=== PATIENT | male | born 1965 | race Caucasian/White ===

== ENCOUNTER 2016-10-28 10:41 | Emergency (ER) | payer OTHER ==
[2016-10-28 10:44] VITALS: BMI 25.8
[2016-10-28] MEDS ORDERED: SODIUM CHLORIDE 1,000 ML IV STA ×2 (12:32→13:49)
--- NOTE | 2016-10-28 12:43 | PDOC ---
History of Present Illness - General Chief Complaint: Weakness Stated Complaint: FATIGUE, LOW BP/lab variance Time Seen by Provider: 10/28/16 10:48 History Source: Patient - History of Present Illness Timing/Duration: 1 week Associated Symptoms: reports: weakness. denies: cough, fever/chills, headaches , nausea/vomiting, shortness of breath Past History - Past Medical History Allergies/Adverse Reactions: Allergies Allergy/AdvReac Type Severity Reaction Status Date / Time No Known Allergies Allergy Verified 10/28/16 10:44 Home Medications: Ambulatory Orders Dapagliflozin Propanediol [Farxiga] 0 mg PO BID 10/28/16 Insulin Lispro [Humalog] 10 unit SQ DAILY 10/28/16 Lisinopril [Prinivil] 10 mg PO DAILY 10/28/16 Metformin HCl [Glucophage] 1,000 mg PO BID 10/28/16 Diabetes: Yes HTN: Yes Hypercholesterolemia: Yes - Surgical History Appendectomy: Yes - Psycho/Social/Smoking Cessation Hx Anxiety: No Suicidal Ideation: No Smoking History: Never smoked Have you smoked in the past 12 months: No Information on smoking cessation initiated: No Hx Alcohol Use: No Drug/Substance Use Hx: No Substance Use Type: None Hx Substance Use Treatment: No Review of Systems - Review of Systems Constitutional: Yes: Weakness. No: Chills, Fever HEENTM: No: Blurred Vision Respiratory: No: Cough, Shortness of Breath Cardiac (ROS): No: Chest Pain ABD/GI: No: Diarrhea, Nausea, Vomiting : Yes: Frequency. No: Burning, Dysuria, Flank Pain, Hematuria Neurological: No: Headache, Dizziness *Physical Exam - Vital Signs Last Vital Signs Temp Pulse Resp BP Pulse Ox 97.7 F 97 H 19 129/80 99 10/28/16 10:42 10/28/16 10:42 10/28/16 10:42 10/28/16 10:42 10/28/16 10:42 - Physical Exam General Appearance: Yes: Appropriately Dressed. No: Apparent Distress HEENT: positive: Normal Voice Neck: positive: Supple Respiratory/Chest: positive: Lungs Clear, Normal Breath Sounds. negative: Respiratory Distress Cardiovascular: positive: Regular Rate, S1, S2 Gastrointestinal/Abdominal: positive: Soft. negative: Tender Musculoskeletal: negative: CVA Tenderness Extremity: positive: Normal Inspection Integumentary: positive: Dry, Warm Neurologic: positive: Fully Oriented, Alert, Normal Mood/Affect ED Treatment Course - LABORATORY CBC & Chemistry Diagram: 10/28/16 12:55 10/28/16 12:55 Medical Decision Making - Medical Decision Making 10/28/16 12:37 51-year-old male, history of hypertriglyceridemia, hypertension, poorly controlled insulin-dependent diabetes, sent in by ED for hyperglycemia and low potassium on labs yesterday after patient presented to office with complaint of weakness and fatigue 1 week. Patient states despite multiple adjustment of medication fingerstick continues to be elevated at home. [facility] PMD started him on new oral hypoglycemic yesterday per patient but has yet to burr picker prescription. [facility] PMD contacted him this am to inform him that blood glucose was significantly elevated and his potassium was low. Pt denies any dizziness, CP, sob, muscle aches, sensory changes, n/v/f/c. See exam Hyperglycemia on labs yesterday +weakness and fatigue Stable and well debora in ED w/ unremarkable exam -labs -IVF -insulin -discuss dispo w/ referring MD Hypokalemia on labs yesterday -ekg -labs -replete as necessary The care 10/28/16 12:38 10/28/16 12:43 10/28/16 13:56 Case d/w Dr Soriano who states patient had hyponatremia, hypokalemia with sugar in the 600s on labs yesterday. Informed of results today. Agrees with IV fluid and repeat fingerstick. States patient to start taking new oral hypoglycemic sent to pharmacy and for patient to follow up with him in office on Tuesday. 10/28/16 14:59 FS. pt well debora and feels well going home. Will fill rx for new oral hypoglycemic as given by pmd and follow up 10/28/16 16:37 Told by ED nurse that fingerstick machine malfunctioning and currently under repair. In the meantime, patient offered for us to redraw blood to recheck BG on chem, but declines at this time. States he feels well and would prefer to go home and do fingerstick himself. States he will return if symptoms have worsened. Will burr picker new oral hypoglycemic at pharmacy and follow-up with PMD on Tuesday, . *DC/Admit/Observation/Transfer Diagnosis at time of Disposition: Hyperglycemia - Discharge Dispostion Disposition: HOME Condition at time of disposition: Improved - Referrals Referrals: Toni Soriano [Primary Care Provider] - - Patient Instructions Printed Discharge Instructions: DI for Hyperglycemia -- Adult Additional Instructions: Please start new meds and follow up with your PMD on Tuesday Return to ED for worsening of symptoms
[2016-10-28 13:02] LABS: EOSINOPHIL 1.1 % (0-4.5); MCH 28.1 pg (25.7-33.7); MCHC 34.4 g/dl (32.0-35.9); MEAN CELL VOLUME 81.7 fl (80-96); NEUTROPHILS 66.4 % (42.8-82.8); PLATELET COUNT 237 K/MM3 (134-434)
[2016-10-28 13:24] VITALS: TEMP 97.9
[2016-10-28 13:31] LABS: ANION GAP 12 (8-16); BILIRUBIN,TOTAL 0.8 mg/dL (0.2-1.0); CO2 28 mmol/L (21-32); COCKROFT - GAULT 110.24; CREATININE 0.9 mg/dL (0.7-1.3); SGOT/AST 19 U/L (15-37); SGPT/ALT 36 U/L (12-78); TOT PROT 8.1 g/dl (6.4-8.2)
[2016-10-28 13:33] LABS: ALK PHOS 115 U/L (45-117); TROPONIN I < 0.02 ng/ml (0.00-0.05)
[2016-10-28 13:39] LABS: GLUCOSE,RANDOM 383 mg/dL (74-106)
--- NOTE | 2016-10-28 13:47 | PDOC ---
*Physical Exam - Vital Signs Last Vital Signs Temp Pulse Resp BP Pulse Ox 97.9 F 75 16 175/75 98 10/28/16 13:00 10/28/16 13:00 10/28/16 13:00 10/28/16 13:00 10/28/16 13:00 Heart Score/ECG Review #1 ECG reviewed & interpreted by me at: 13:46 General ECG Interpretation: Sinus Rhythm, Normal Rate, Normal Intervals, No acute ischemic changes ED Treatment Course - LABORATORY CBC & Chemistry Diagram: 10/28/16 12:55 10/28/16 12:55 - ADDITIONAL ORDERS Additional order review: Laboratory Results 10/28/16 12:55 Sodium 133 L Potassium 3.9 Chloride 93 L Carbon Dioxide 28 Anion Gap 12 BUN 9 D Creatinine 0.9 Creat Clearance w eGFR > 60 Random Glucose 383 H* D Calcium 9.0 Total Bilirubin 0.8 AST 19 ALT 36 Alkaline Phosphatase 115 D Creatine Kinase 60 Troponin I < 0.02 Total Protein 8.1 Albumin 4.0 10/28/16 12:55 RBC 5.13 MCV 81.7 MCHC 34.4 RDW 13.0 MPV 9.0 Neutrophils % 66.4 Lymphocytes % 23.3 Monocytes % 8.2 Eosinophils % 1.1 Basophils % 1.0 - Medications Given in the ED: ED Medications Discontinued Medications Generic Name Dose Route Start Last Admin Trade Name Sonya PRN Reason Stop Dose Admin Sodium Chloride 1,000 mls @ 1,000 mls/hr 10/28/16 12:32 10/28/16 12:45 Normal Saline - IV 10/28/16 13:31 1,000 mls/hr ASDIR STA Administration Medical Decision Making - Medical Decision Making 10/28/16 13:46 Pt seen by Midlevel Provider under my direct supervision Ancillary studies reviewed I agree with plan as outlined by Midlevel Provider *DC/Admit/Observation/Transfer Diagnosis at time of Disposition: Hyperglycemia - Discharge Dispostion Disposition: HOME Condition at time of disposition: Improved - Referrals Referrals: Toni Soriano [Primary Care Provider] - - Patient Instructions Printed Discharge Instructions: DI for Hyperglycemia -- Adult Additional Instructions: Please start new meds and follow up with your PMD on Tuesday Return to ED for worsening of symptoms
--- NOTE | 2016-10-28 15:18 | EKG ---
Test Reason : Blood Pressure : / mmHG Vent. Rate : 098 BPM Atrial Rate : 098 BPM P-R Int : 146 ms QRS Dur : 104 ms QT Int : 368 ms P-R-T Axes : 049 041 012 degrees QTc Int : 469 ms NORMAL SINUS RHYTHM NORMAL ECG NO PREVIOUS ECGS AVAILABLE Confirmed by BETTY LEAVITT MD ([id number]) on 10/28/2016 3:17:50 PM Referred By: Confirmed By:BETTY LEAVITT MD
[2016-10-28 15:36] LABS: URINE APPEARANCE CLEAR; URINE BILIRUBIN NEGATIVE (NEGATIVE); URINE BLOOD NEGATIVE (NEGATIVE); URINE COLOR STRAW; URINE GLUCOSE (UA) 3+ (NEGATIVE); URINE KETONE NEGATIVE (NEGATIVE); URINE LEUK ESTERASE NEGATIVE (NEGATIVE); URINE NITRITE NEGATIVE (NEGATIVE); URINE PROTEIN NEGATIVE (NEGATIVE); URINE UROBILINOGEN NEGATIVE E.U./dl (0.2-1.0)
[2016-10-28 16:52] VITALS: BP 114/70; PULSE 80
== END 2016-10-28 16:50 | disposition home or self-care (01) ==
LOC: JER 10:41
PROC: 3E0337Z Introduction of Electrolytic and Water Balance Substance into Peripheral Vein, Percutaneous Approach (ICD-10-PCS; principal; 2016-10-28)
DX: E11.65 Type 2 diabetes mellitus with hyperglycemia (principal); I10 Essential (primary) hypertension; E78.00 Pure hypercholesterolemia, unspecified; Z79.4 Long term (current) use of insulin
CPT/HCPCS: 36415; 80053; 81003; 82550; 84484; 85025; 93005; 93010; 99283-25

== ENCOUNTER 2017-04-27 08:29 | Emergency (ER) | payer OTHER ==
[2017-04-27 08:38] VITALS: TEMP 97.5; BMI 27.3
--- NOTE | 2017-04-27 09:55 | PDOC ---
History of Present Illness <Kala Zapata - Last Filed: 04/27/17 12:44> - History of Present Illness Initial Comments: 04/27/17 10:01 "The patient is a 52 year old male, with a significant past medical history of IDDM (8-10 units of Novalog in the AM daily, and Metformin), HTN (reportedly taking lisinopril), who presents to the emergency department with persistent high blood glucose despite taking daily Novalog. The patient states his glucose is about 200 at baseline, however, for about a week has been unable to lower his glucose down from 400. He denies any dietary changes recently. Denies any recent changes in his medications. He reports 2 episodes of nonbilious/ nonbloody emesis yesterday night, but denies nausea or vomiting today. He reports increased thirst and increased urinary output. He denies chest pain, shortness of breath, headache and dizziness. He denies fever, chills, nausea, vomit, diarrhea and constipation. He denies dysuria, frequency, urgency and hematuria. Allergies: NKDA Past surgical history: none reported Social history: Denies toxic habits. 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 PCP: Dr. Fonseca (N/A - [phone])" <Abdi Stanford - Last Filed: 04/27/17 14:57> - General Chief Complaint: Blood Sugar Problem Stated Complaint: Sugar Problem Time Seen by Provider: 04/27/17 09:11 Past History <Kala Zapata - Last Filed: 04/27/17 12:44> - Past Medical History COPD: No Diabetes: Yes HTN: Yes Hypercholesterolemia: Yes - Surgical History Appendectomy: Yes - Suicide/Smoking/Psychosocial Hx Smoking History: Never smoked Have you smoked in the past 12 months: No Hx Alcohol Use: No Drug/Substance Use Hx: No Substance Use Type: None Hx Substance Use Treatment: No <Abdi Stanford - Last Filed: 04/27/17 14:57> - Past Medical History Allergies/Adverse Reactions: Allergies Allergy/AdvReac Type Severity Reaction Status Date / Time No Known Allergies Allergy Verified 04/27/17 08:38 Home Medications: Ambulatory Orders Dapagliflozin Propanediol [Farxiga] 0 mg PO BID 10/28/16 Insulin Lispro [Humalog] 10 unit SQ DAILY 10/28/16 Lisinopril [Prinivil] 10 mg PO DAILY 10/28/16 Metformin HCl [Glucophage] 1,000 mg PO BID 10/28/16 Review of Systems - Review of Systems Comments:: 04/27/17 10:02 """GENERAL/CONSTITUTIONAL: No fever or chills. No weakness. HEAD, EYES, EARS, NOSE AND THROAT: No change in vision. No ear pain or discharge. No sore throat. CARDIOVASCULAR: No chest pain or shortness of breath. RESPIRATORY: No cough, wheezing, or hemoptysis. GASTROINTESTINAL: No nausea, vomiting, diarrhea or constipation. GENITOURINARY: No dysuria, frequency, or change in urination. MUSCULOSKELETAL: No joint or muscle swelling or pain. No neck or back pain. SKIN: No rash NEUROLOGIC: No headache, vertigo, loss of consciousness, or change in strength/ sensation. ENDOCRINE: (+) high blood sugars. No increased thirst. No abnormal weight change. HEMATOLOGIC/LYMPHATIC: No anemia, easy bleeding, or history of blood clots. ALLERGIC/IMMUNOLOGIC: No hives or skin allergy. """ <Abdi Stanford - Last Filed: 04/27/17 14:57> *Physical Exam - Vital Signs Last Vital Signs Temp Pulse Resp BP Pulse Ox 97.5 F L 112 H 20 126/71 98 04/27/17 08:35 04/27/17 08:35 04/27/17 08:35 04/27/17 08:35 04/27/17 08:35 <Kala Zapata - Last Filed: 04/27/17 12:44> - Vital Signs Last Vital Signs Temp Pulse Resp BP Pulse Ox 97.5 F L 112 H 20 126/71 98 04/27/17 08:35 04/27/17 08:35 04/27/17 08:35 04/27/17 08:35 04/27/17 08:35 - Physical Exam Comments: 04/27/17 09:53 "GENERAL: Awake, alert, and fully oriented, in no acute distress HEAD: No signs of trauma EYES: PERRLA, EOMI, sclera anicteric, conjunctiva clear ENT: Auricles normal inspection, hearing grossly normal, nares patent, oropharynx clear without exudates. Moist mucosa NECK: Nontender, no stepoffs, Normal ROM, supple, no lymphadenopathy, JVD, or masses LUNGS: Breath sounds equal, clear to auscultation bilaterally. No wheezes, and no crackles HEART: Regular rate and rhythm, normal S1 and S2, no murmurs, rubs or gallops ABDOMEN: Soft, nontender, normoactive bowel sounds. No guarding, no rebound. No masses EXTREMITIES: Normal range of motion, no edema. No clubbing or cyanosis. No cords, erythema, or tenderness NEUROLOGICAL: Cranial nerves II through XII intact. 5/5 strength and sensation in all extremities, Normal speech, normal gait SKIN: Warm, Dry, normal turgor, no rashes or lesions noted. " <Abdi Stanford - Last Filed: 04/27/17 14:57> ED Treatment Course - LABORATORY CBC & Chemistry Diagram: 04/27/17 11:55 04/27/17 12:00 - ADDITIONAL ORDERS Additional order review: Laboratory Results 04/27/17 04/27/17 04/27/17 12:00 11:55 10:25 VBG pH QNS POC VBG pCO2 QNS POC VBG pO2 QNS Mixed VBG HCO3 QNS Sodium 132 L Potassium 4.1 Chloride 97 L Carbon Dioxide 26 Anion Gap 9 BUN 13 D Creatinine 0.8 Creat Clearance w eGFR > 60 Random Glucose 346 H* Calcium 8.2 L Phosphorus 3.4 Magnesium 1.7 L Total Bilirubin 1.1 H D AST 38 H D ALT 52 D Alkaline Phosphatase 71 D Total Protein 7.2 Albumin 3.7 Acetone, Qual Negative 04/27/17 04/27/17 11:55 10:25 RBC 5.02 Cancelled MCV 81.1 Cancelled MCHC 33.7 Cancelled RDW 13.2 Cancelled MPV 8.3 Cancelled Neutrophils % 82.0 D Cancelled Lymphocytes % 9.3 D Cancelled Monocytes % 8.2 Cancelled Eosinophils % 0.1 D Cancelled Basophils % 0.4 Cancelled <Kala Zapata - Last Filed: 04/27/17 12:44> - LABORATORY CBC & Chemistry Diagram: 04/27/17 11:55 04/27/17 12:00 - RADIOLOGY Radiology Studies Ordered: Category Date Time Status CHEST X-RAY PORTABLE* [RAD] Stat Radiology 04/27/17 09:28 Ordered <Abdi Stanford - Last Filed: 04/27/17 14:57> Medical Decision Making - Medical Decision Making 04/27/17 12:44 Dr. Kayleigh Soriano was called at his office and the patient's case was discussed. <Kala Zapata - Last Filed: 04/27/17 12:44> - Medical Decision Making 04/27/17 09:53 52 M with IDDM, HTN presenting to ER with poorly controlled sugars. Also complaining of nausea + vomiting x 1. Possible DKA. Pt with tachycardia in ER, likely 2/2 volume depletion. - Labs, VBG, serum ketones, UA - EKG - IVF - Mag, K, insulin PRN 04/27/17 14:42 CBC,CMP WBC 10.8 K/mm3 (4.0-10.0) H 04/27/17 11:55 Corrected WBC (auto) Cancelled 04/27/17 10:25 RBC 5.02 M/mm3 (4.00-5.60) 04/27/17 11:55 Hgb 13.7 GM/dL (11.7-16.9) 04/27/17 11:55 Hct 40.7 % (35.4-49) 04/27/17 11:55 MCV 81.1 fl (80-96) 04/27/17 11:55 MCH 27.3 pg (25.7-33.7) 04/27/17 11:55 MCHC 33.7 g/dl (32.0-35.9) 04/27/17 11:55 RDW 13.2 % (11.9-15.9) 04/27/17 11:55 Plt Count 212 K/MM3 (134-434) 04/27/17 11:55 MPV 8.3 fl (7.5-11.1) 04/27/17 11:55 Neutrophils % 82.0 % (42.8-82.8) D 04/27/17 11:55 Lymphocytes % 9.3 % (8-40) D 04/27/17 11:55 Monocytes % 8.2 % (3.8-10.2) 04/27/17 11:55 Eosinophils % 0.1 % (0-4.5) D 04/27/17 11:55 Basophils % 0.4 % (0-2.0) 04/27/17 11:55 Platelet Comment Cancelled 04/27/17 10:25 Sodium 132 mmol/L (136-145) L 04/27/17 12:00 Potassium 4.1 mmol/L (3.5-5.1) 04/27/17 12:00 Chloride 97 mmol/L (98-107) L 04/27/17 12:00 Carbon Dioxide 26 mmol/L (21-32) 04/27/17 12:00 Anion Gap 9 (8-16) 04/27/17 12:00 BUN 13 mg/dL (7-18) D 04/27/17 12:00 Creatinine 0.8 mg/dL (0.7-1.3) 04/27/17 12:00 Creat Clearance w eGFR > 60 (>60) 04/27/17 12:00 Random Glucose 346 mg/dL (74-106) H* 04/27/17 12:00 Calcium 8.2 mg/dL (8.5-10.1) L 04/27/17 12:00 Phosphorus 3.4 mg/dL (2.5-4.9) 04/27/17 12:00 Magnesium 1.7 mg/dL (1.8-2.4) L 04/27/17 10:25 Total Bilirubin 1.1 mg/dL (0.2-1.0) H D 04/27/17 12:00 AST 38 U/L (15-37) H D 04/27/17 12:00 ALT 52 U/L (12-78) D 04/27/17 12:00 Alkaline Phosphatase 71 U/L (45-117) D 04/27/17 12:00 Total Protein 7.2 g/dl (6.4-8.2) 04/27/17 12:00 Albumin 3.7 g/dl (3.4-5.0) 04/27/17 12:00 Ketones negative. AG 9. No evidence of DKA. Spoke with Dr. Soriano, pt's PMD, regarding his blood sugar control. He has agreed to see pt in clinic this week to adjust his insulin regimen. 04/27/17 14:57 Rpt fingerstick 150. Pt well appearing, vitals now normal. Clinically stable for DC. <Abdi Stanford - Last Filed: 04/27/17 14:57> *DC/Admit/Observation/Transfer - Attestations Scribe Attestion: 04/27/17 12:46 Documentation prepared by Kala Zapata, acting as medical coding auditor for Abdi Stanford MD <Kala Zapata - Last Filed: 04/27/17 12:44> - Attestations Physician Attestion: 04/27/17 14:47 I, Dr. Abdi Stanford MD, attest that this document has been prepared under my direction and personally reviewed by me in its entirety. I further attest, that it accurately reflects all work, treatment, procedures and medical decision -making performed by me. <Abdi Stanford - Last Filed: 04/27/17 14:57> Diagnosis at time of Disposition: Hyperglycemia - Discharge Dispostion Disposition: HOME - Patient Instructions Printed Discharge Instructions: DI for Hyperglycemia -- Adult Additional Instructions: Call your primary doctor today to make an appointment as soon as possible. You need to have your diabetes medications adjusted. Poorly controlled sugar can lead to severe complications, including heart and kidney disease, severe disability, or even . If you experience persistently elevated sugars, vomiting, weakness, or any other concerning symptoms, return to the ER immediately. Otherwise see your primary doctor within 48 hours. - Post Discharge Activity Forms/Work/School Notes: Back to Work
[2017-04-27] MEDS ORDERED: HEMOQUE TEST 1 EACH EACH ONE (11:24)
[2017-04-27 12:15] LABS: ACETONE SERUM NEGATIVE (NEGATIVE)
[2017-04-27] MEDS ORDERED: SODIUM CHLORIDE 1,000 ML IV STA ×2 (12:16→12:41)
[2017-04-27 12:19] LABS: ALBUMIN 3.7 g/dl (3.4-5.0); ANION GAP 9 (8-16); BILIRUBIN,TOTAL 1.1 mg/dL (0.2-1.0); CALCIUM 8.2 mg/dL (8.5-10.1); CO2 26 mmol/L (21-32); CREATININE 0.8 mg/dL (0.7-1.3); PHOSPHOROUS 3.4 mg/dL (2.5-4.9); SGOT/AST 38 U/L (15-37); SGPT/ALT 52 U/L (12-78); TOT PROT 7.2 g/dl (6.4-8.2)
[2017-04-27 12:19] LABS: BASOPHIL 0.4 % (0-2.0); EOSINOPHIL 0.1 % (0-4.5); MCH 27.3 pg (25.7-33.7); MCHC 33.7 g/dl (32.0-35.9); MEAN CELL VOLUME 81.1 fl (80-96); MEAN PLT VOLUME 8.3 fl (7.5-11.1); PLATELET COUNT 212 K/MM3 (134-434); RDW 13.2 % (11.9-15.9); WHITE BLOOD COUNT 10.8 K/mm3 (4.0-10.0)
[2017-04-27 12:20] LABS: ALK PHOS 71 U/L (45-117)
[2017-04-27 12:23] LABS: VENOUS BLOOD GAS HCO3 QNS meq/L (19-25); VENOUS PH QNS (7.32-7.42)
[2017-04-27 12:26] LABS: GLUCOSE,RANDOM 346 mg/dL (74-106)
[2017-04-27] MEDS ORDERED: INSULIN REGULAR HUMAN 100 UNITS/ML *VIAL IVPUSH ONE (12:39)
[2017-04-27] MEDS ORDERED: MAGNESIUM SULF 50% (8.12 MEQ/2 ML-1 GM VIAL) IVPB ONE (12:39)
[2017-04-27] MEDS ORDERED: MAGNESIUM SULF 50% (8.12 MEQ/2 ML-1 GM VIAL) ONE (12:59)
[2017-04-27] MEDS ORDERED: INSULIN REGULAR HUMAN 100 UNITS/ML *VIAL ONE (13:00)
[2017-04-27 13:18] VITALS: BP 100/59; PULSE 92
--- NOTE | 2017-04-28 11:38 | EKG ---
Test Reason : Blood Pressure : / mmHG Vent. Rate : 101 BPM Atrial Rate : 101 BPM P-R Int : 154 ms QRS Dur : 098 ms QT Int : 358 ms P-R-T Axes : 049 032 020 degrees QTc Int : 464 ms SINUS TACHYCARDIA OTHERWISE NORMAL ECG WHEN COMPARED WITH ECG OF 28-OCT-2016 13:35, NO SIGNIFICANT CHANGE WAS FOUND Confirmed by BETTY LEAVITT MD ([id number]) on 04/28/2017 11:38:09 AM Referred By: Confirmed By:BETTY LEAVITT MD
== END 2017-04-27 15:32 | disposition home or self-care (01) ==
LOC: JER 08:29
PROC: 3E033GC Introduction of Other Therapeutic Substance into Peripheral Vein, Percutaneous Approach (ICD-10-PCS; principal; 2017-04-27)
PROC: 3E0337Z Introduction of Electrolytic and Water Balance Substance into Peripheral Vein, Percutaneous Approach (ICD-10-PCS; 2017-04-27)
PROC: 3E033GC Introduction of Other Therapeutic Substance into Peripheral Vein, Percutaneous Approach (ICD-10-PCS; 2017-04-27)
PROC: 3E033VG Introduction of Insulin into Peripheral Vein, Percutaneous Approach (ICD-10-PCS; 2017-04-27)
DX: E10.65 Type 1 diabetes mellitus with hyperglycemia (principal); Z79.4 Long term (current) use of insulin; Z79.84 Long term (current) use of oral hypoglycemic drugs; I10 Essential (primary) hypertension; E78.00 Pure hypercholesterolemia, unspecified
CPT/HCPCS: 36415; 80053; 82009; 82803; 83735; 84100; 85025; 93005; 93010; 99283-25

== ENCOUNTER 2018-05-02 23:50 | Emergency (ER) | payer OTHER ==
[2018-05-03 00:01] VITALS: BMI 26.5
[2018-05-03] MEDS ORDERED: SODIUM CHLORIDE 1,000 ML IV STA ×2 (00:03→03:02)
--- NOTE | 2018-05-03 00:03 | PDOC ---
History of Present Illness - General Chief Complaint: Blood Sugar Problem Stated Complaint: BLOOD SUGAR HIGH Time Seen by Provider: 05/03/18 00:03 History Source: Patient - History of Present Illness Initial Comments: 05/03/18 04:21 53-year-old male history of type 1 diabetes reports feeling tired all day today blood sugar greater than 500 at home. Patient reports that he had his flu shot 3 days ago denies fevers/chills, urinary symptoms, chest pain dizziness.Denies nausea, vomiting, diarrhea, abdominal pain. Past History - Past Medical History Allergies/Adverse Reactions: Allergies Allergy/AdvReac Type Severity Reaction Status Date / Time No Known Allergies Allergy Verified 05/03/18 00:01 Home Medications: Ambulatory Orders Dapagliflozin Propanediol [Farxiga] 0 mg PO BID 10/28/16 Insulin Lispro [Humalog] 10 unit SQ DAILY 10/28/16 Lisinopril [Prinivil] 10 mg PO DAILY 10/28/16 Metformin HCl [Glucophage] 1,000 mg PO BID 10/28/16 COPD: No Diabetes: Yes HTN: Yes Hypercholesterolemia: Yes - Surgical History Appendectomy: Yes - Suicide/Smoking/Psychosocial Hx Smoking History: Never smoked Have you smoked in the past 12 months: No Information on smoking cessation initiated: No Hx Alcohol Use: No Drug/Substance Use Hx: No Substance Use Type: None Hx Substance Use Treatment: No *Physical Exam - Vital Signs Last Vital Signs Temp Pulse Resp BP Pulse Ox 97.5 F L 89 18 120/76 99 05/02/18 23:57 05/02/18 23:57 05/02/18 23:57 05/02/18 23:57 05/02/18 23:57 - Physical Exam General Appearance: Yes: Appropriately Dressed Respiratory/Chest: positive: Lungs Clear, Normal Breath Sounds Cardiovascular: positive: Regular Rhythm, Regular Rate Gastrointestinal/Abdominal: positive: Normal Bowel Sounds, Soft Extremity: positive: Normal Capillary Refill, Normal Inspection, Normal Range of Motion Integumentary: positive: Normal Color, Dry, Warm Neurologic: positive: Fully Oriented, Alert Moderate Sedation - Procedure Monitoring Vital Signs: Procedure Monitoring Vital Signs Temperature 97.5 F L 05/02/18 23:57 Pulse Rate 89 05/02/18 23:57 Respiratory Rate 18 05/02/18 23:57 Blood Pressure 120/76 05/02/18 23:57 O2 Sat by Pulse Oximetry (%) 99 05/02/18 23:57 Heart Score/ECG Review - History History: Slightly suspicious - Electrocardiogram EKG: Normal - Age Age: 45-65 - Risk Factors Risk Factors Heart Score: Yes Hx Diabetes Based on the list above the patient has:: 1-2 risk factors - Troponin Troponin: </= normal limit - Score Heart Score - Total: 2 - ECG Intrepretation Rhythm: Regular Rhythm Comment:: 05/03/18 05:49 NSR ED Treatment Course - LABORATORY CBC & Chemistry Diagram: 05/03/18 01:29 05/03/18 01:29 Medical Decision Making - Medical Decision Making 05/03/18 04:23 patient now status post IV fluids. pending fingerstick blood glucose level. Patient reports some slight chest discomfort. Will do an ekg Troponin negative 05/03/18 04:31 chest pain worse as per patient. breath sounds clear. EKG: NSR. will give aspirin. recheck troponin level. 05/03/18 05:25 Chest XR. No focal lung consolidation or pleural effusions. Hypoinflation lungs. Cardiomediastinal silhouette unremarkable. Bones unremarkable 05/03/18 05:48 patient is well appearing. no chest pain. repeat labs wnl . xray negtative ekg negative will d/c home *DC/Admit/Observation/Transfer Diagnosis at time of Disposition: Hyperglycemia Chest pain Qualifiers: Chest pain type: unspecified Qualified Code(s): R07.9 - Chest pain, unspecified - Referrals Referrals: Toni Soriano [Primary Care Provider] - 24 hours - Patient Instructions Printed Discharge Instructions: DI for Hyperglycemia -- Adult Additional Instructions: you may take your regular insulin at home , follow up with your doctor Additional Instructions: * Please call your personal physician to report your Emergency Department visit and to report your progress, if any. * If there is no improvement in symptoms in 2 days call your physician. * Return to the Emergency Department for any worsening symptoms. - Post Discharge Activity Forms/Work/School Notes: Back to Work
[2018-05-03 01:52] LABS: BASO % 0.9 % (0-2.0); EOS % 1.3 % (0-4.5); HEMOGLOBIN 12.9 GM/dL (11.7-16.9); LYMPH % 29.5 % (8-40); MCH 28.8 pg (25.7-33.7); MCHC 35.7 g/dl (32.0-35.9); MEAN CELL VOLUME 80.6 fl (80-96); MEAN PLT VOLUME 8.5 fl (7.5-11.1); MONO % 6.9 % (3.8-10.2); NEUT % 61.4 % (42.8-82.8); PLATELET COUNT 213 K/MM3 (134-434); RBC 4.47 M/mm3 (4.00-5.60); RDW 12.9 % (11.9-15.9); WHITE BLOOD COUNT 6.1 K/mm3 (4.0-10.0)
[2018-05-03 01:53] LABS: VENOUS PC02 39.1 mmHg (38-52); VENOUS PH 7.43 (7.32-7.42)
[2018-05-03 02:14] LABS: INR 0.96 (0.83-1.09); PROTHROMBIN TIME (PATIENT) 11.3 SEC (9.7-13.0)
[2018-05-03 02:17] LABS: ACTIVATED PTT 31.5 SECONDS (25.2-36.5)
[2018-05-03 02:18] LABS: ALBUMIN 3.4 g/dl (3.4-5.0); ALK PHOS 111 U/L (45-117); ANION GAP 10 MMOL/L (8-16); BILIRUBIN,TOTAL 0.6 mg/dL (0.2-1); BLOOD UREA NITROGEN 11 mg/dL (7-18); CALCIUM 9.1 mg/dL (8.5-10.1); CHLORIDE 97 mmol/L (98-107); CO2 27 mmol/L (21-32); CREATININE 0.8 mg/dL (0.55-1.3); POTASSIUM 4.1 mmol/L (3.5-5.1); SGOT/AST 30 U/L (15-37); SGPT/ALT 52 U/L (13-61); SODIUM 133 mmol/L (136-145)
[2018-05-03 02:22] LABS: GLUCOSE,RANDOM 359 mg/dL (74-106)
[2018-05-03] MEDS ORDERED: INSULIN REGULAR HUMAN 100 UNITS/ML *VIAL IVPUSH ONE (03:02)
[2018-05-03] MEDS ORDERED: INSULIN REGULAR HUMAN 100 UNITS/ML *VIAL ONE (03:28)
[2018-05-03 03:37] LABS: URINE APPEARANCE CLEAR; URINE BILIRUBIN NEGATIVE (<2.0 mg/dL); URINE COLOR STRAW; URINE GLUCOSE (UA) 3+ (NEGATIVE); URINE KETONE NEGATIVE (NEGATIVE); URINE LEUK ESTERASE NEGATIVE (NEGATIVE); URINE NITRITE NEGATIVE (NEGATIVE); URINE PROTEIN NEGATIVE (NEGATIVE); URINE UROBILINOGEN NEGATIVE mg/dL (0.2-1.0)
[2018-05-03] MEDS ORDERED: ASPIRIN 81 MG CHEWABLE TABLETS PO ONE (04:30)
[2018-05-03] MEDS ORDERED: ASPIRIN 81 MG CHEWABLE TABLETS ONE (04:35)
[2018-05-03 05:11] VITALS: BP 124/80; PULSE 77; TEMP 97.8
--- NOTE | 2018-05-03 09:45 | EKG ---
Test Reason : Blood Pressure : / mmHG Vent. Rate : 073 BPM Atrial Rate : 073 BPM P-R Int : 156 ms QRS Dur : 098 ms QT Int : 388 ms P-R-T Axes : 044 024 022 degrees QTc Int : 427 ms NORMAL SINUS RHYTHM NORMAL ECG WHEN COMPARED WITH ECG OF 27-APR-2017 09:57, NO SIGNIFICANT CHANGE WAS FOUND Confirmed by CATHLEEN GAY MD ([id number]) on 05/03/2018 9:45:30 AM Referred By: Confirmed By:CATHLEEN GAY MD
== END 2018-05-03 06:43 | disposition home or self-care (01) ==
LOC: JER 23:50
PROC: 3E013VG Introduction of Insulin into Subcutaneous Tissue, Percutaneous Approach (ICD-10-PCS; principal; 2018-05-02)
PROC: 3E0337Z Introduction of Electrolytic and Water Balance Substance into Peripheral Vein, Percutaneous Approach (ICD-10-PCS; 2018-05-02)
DX: R07.9 Chest pain, unspecified (principal); E10.65 Type 1 diabetes mellitus with hyperglycemia; Z79.4 Long term (current) use of insulin; I10 Essential (primary) hypertension; E78.00 Pure hypercholesterolemia, unspecified
CPT/HCPCS: 36415; 71045-TC-FY; 80053; 81003; 82009; 82550; 82803; 84484; 85025; 85610; 85730; 93005; 93010; 99282-25; J7030

== ENCOUNTER 2019-12-25 04:11 | Emergency (ER) | payer OTHER ==
--- NOTE | 2019-12-25 04:16 | PDOC ---
Attending Attestation - Resident Resident Name: Heriberto Rosenberg - ED Attending Attestation I have performed the following: I have examined & evaluated the patient, The case was reviewed & discussed with the resident, I agree w/resident's findings & plan - HPI HPI: 12/25/19 04:39 see resident hpi - Physicial Exam PE: 12/25/19 04:39 see resident exam - Medical Decision Making 12/25/19 04:39 54-year-old male type I diabetic with weakness Fingerstick blood sugar 369 Patient does have a history of chronic hyperglycemia, poorly controlled despite insulin manipulation Plan for labs, rule out DKA IV fluid LR administration and reevaluation If not improved will plan for observation Discharge - Discharge Information Problems reviewed: Yes Clinical Impression/Diagnosis: Near syncope Condition: Fair - Follow up/Referral - Patient Discharge Instructions - Post Discharge Activity
[2019-12-25 04:17] VITALS: TEMP 98.1; BMI 27.2
[2019-12-25] MEDS ORDERED: LACTATED RINGERS SOLUTION 1000 ML INFUS.BAG IV ONE ×2 (04:18→05:08)
--- NOTE | 2019-12-25 04:30 | PDOC ---
History of Present Illness - General Chief Complaint: Blood Sugar Problem Stated Complaint: BLOOD SUGAR PROBLEM Time Seen by Provider: 12/25/19 04:13 - History of Present Illness Initial Comments: Jose Ng is a 54 y/o male with PMH significant for T2DM presenting today for lightheadedness, weakness, and feeling faint. 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 No LOC. No fall/head trauma. He normally takes 120 units of insulin every day divided over three doses. Does not report change in appetite or PO intake. States that at baseline his blood sugar is in the 300s. Drank a few sips of soda prior to presentation. Pt denies chest pain/shortness of breath/abdominal pain. Denies headache/back pain/leg swelling. Denies dysuria/frequency. Past History - Medical History Allergies/Adverse Reactions: Allergies Allergy/AdvReac Type Severity Reaction Status Date / Time No Known Allergies Allergy Verified 12/25/19 04:17 Home Medications: Ambulatory Orders Dapagliflozin Propanediol [Farxiga] 0 mg PO BID 10/28/16 Insulin Lispro [Humalog] 10 unit SQ DAILY 10/28/16 Lisinopril [Prinivil] 10 mg PO DAILY 10/28/16 Metformin HCl [Glucophage] 1,000 mg PO BID 10/28/16 COPD: No Diabetes: Yes HTN: Yes Hypercholesterolemia: Yes - Surgical History Appendectomy: Yes - Immunization History Immunization Up to Date: No - Psycho-Social/Smoking History Smoking History: Never smoked Have you smoked in the past 12 months: No Information on smoking cessation initiated: No - Substance Abuse Hx (Audit-C & DAST Scrn) How often the patient has a drink containing alcohol: Never Score: In Men: 4 or > Positive; In Women: 3 or > Positive: 0 Screen Result (Pos requires Nsg. Audit-10AR): Negative In the last yr the pt used illegal drug/Rx for NonMed reason: No Score: Yes response is considered Positive: 0 Screen Result (Positive result requires Nsg. DAST-10): Negative Review of Systems - Review of Systems Comments:: GENERAL/CONSTITUTIONAL: No fever or chills. No weakness._ HEAD, EYES, EARS, NOSE AND THROAT: No change in vision. No change in hearing. No sore throat._ CARDIOVASCULAR: No chest pain or shortness of breath_ RESPIRATORY: Denies cough, hemoptysis_ GASTROINTESTINAL: No nausea, vomiting, diarrhea or constipation._ GENITOURINARY: No dysuria, frequency, or change in urination._ MUSCULOSKELETAL: No joint or muscle swelling or pain. No neck or back pain._ SKIN: No rash_ NEUROLOGIC: Reports feeling lightheaded and faint. No headache, vertigo, loss of consciousness, or change in strength/sensation._ ENDOCRINE: No increased thirst. No abnormal weight change_ HEMATOLOGIC/LYMPHATIC: No anemia, easy bleeding, or history of blood clots._ ALLERGIC/IMMUNOLOGIC: No hives or skin allergy._ *Physical Exam - Vital Signs Last Vital Signs Temp Pulse Resp BP Pulse Ox 98.1 F 102 H 17 133/82 96 12/25/19 04:14 12/25/19 04:14 12/25/19 04:14 12/25/19 04:14 12/25/19 04:14 - Physical Exam GENERAL: Awake, arousable to verbal stimuli, and oriented to person/place/time, in no acute distress_ HEAD: No signs of trauma, normocephalic, atraumatic _ EYES: PERRLA, EOMI, sclera anicteric, conjunctiva clear_ ENT: Hearing grossly normal, nares patent, oropharynx clear without exudates. No uvular deviation. Moist mucosa_ NECK: Normal ROM, supple, no lymphadenopathy, JVD, or masses_ LUNGS: No distress, speaks in full sentences, clear to auscultation bilaterally _ HEART: Regular rate and rhythm, normal S1 and S2, no murmurs appreciated, peripheral pulses normal and equal bilaterally._ ABDOMEN: Soft, nontender, normoactive bowel sounds. No guarding, no rebound. No masses_ EXTREMITIES: Normal inspection, Normal range of motion, no edema. No clubbing or cyanosis_ NEUROLOGICAL: Cranial nerves II through XII grossly intact. Normal speech, normal gait, no focal sensorimotor deficits _ SKIN: Warm, Dry, normal turgor, no rashes or lesions noted_ ED Treatment Course - LABORATORY CBC & Chemistry Diagram: 12/25/19 04:30 12/25/19 04:30 - ADDITIONAL ORDERS Additional order review: Laboratory Results 12/25/19 04:19 POC Glucometer 369 12/25/19 04:19 POC Glucometer 369 Medical Decision Making - Medical Decision Making 12/25/19 04:27 54M hx of T2DM presenting today with feeling lightheaded and faint. Blood sugar after a few sips of soda was 292 and 369. Took his insulin as prescribed today (120 units divided into three doses). No change in appetite. DDx includes hyper/hypoglycemia vs r/o DKA vs near syncope vs dehydration. -cbc, cmp -ekg, trop, cxr -beta hydroxybutyrate -lactic -ua/ucx -mag -lipase -vbg 12/25/19 04:43 EKG shows 99 bpm, NSR, no axis deivation, PA 158, QTc 459, no ST elevation/depression. No significant interval change compared to EKG from 2017. 12/25/19 05:41 Labs reviewed. Laboratory Last Values WBC 12.1 K/mm3 (4.0-10.0) H 12/25/19 04:30 RBC 4.60 M/mm3 (4.00-5.60) 12/25/19 04:30 Hgb 12.9 GM/dL (11.7-16.9) 12/25/19 04:30 Hct 37.7 % (35.4-49) 12/25/19 04:30 MCV 82.0 fl (80-96) 12/25/19 04:30 MCH 28.0 pg (25.7-33.7) 12/25/19 04:30 MCHC 34.1 g/dl (32.0-35.9) 12/25/19 04:30 RDW 13.1 % (11.9-15.9) 12/25/19 04:30 Plt Count 197 K/MM3 (134-434) 12/25/19 04:30 MPV 8.8 fl (7.5-11.1) 12/25/19 04:30 Absolute Neuts (auto) 9.4 K/mm3 (1.5-8.0) H 12/25/19 04:30 Neutrophils % 77.1 % (42.8-82.8) D 12/25/19 04:30 Lymphocytes % 14.1 % (8-40) D 12/25/19 04:30 Monocytes % 7.5 % (3.8-10.2) 12/25/19 04:30 Eosinophils % 0.8 % (0-4.5) 12/25/19 04:30 Basophils % 0.5 % (0-2.0) 12/25/19 04:30 Nucleated RBC % 0 % (0-0) 12/25/19 04:30 VBG pH 7.395 (7.310-7.410) 12/25/19 04:35 POC VBG pCO2 40.5 mmHg (38-52) 12/25/19 04:35 POC VBG pO2 82.5 mmHg (28-48) H 12/25/19 04:35 VBG HCO3 24.2 mmol/L (23-29) 12/25/19 04:35 VBG O2 Sat (Richard) 96.1 % (70-80) H 12/25/19 04:35 VBG Base Excess -0.6 mmol/L (-2-2) 12/25/19 04:35 Sodium 134 mmol/L (136-145) L 12/25/19 04:30 Potassium 4.1 mmol/L (3.5-5.1) 12/25/19 04:30 Chloride 101 mmol/L (98-107) 12/25/19 04:30 Carbon Dioxide 24 mmol/L (21-32) 12/25/19 04:30 Anion Gap 9 MMOL/L (8-16) 12/25/19 04:30 BUN 14.9 mg/dL (7-18) 12/25/19 04:30 Creatinine 1.0 mg/dL (0.55-1.3) 12/25/19 04:30 Est GFR (CKD-EPI)AfAm 99.15 12/25/19 04:30 Est GFR (CKD-EPI)NonAf 85.55 12/25/19 04:30 POC Glucometer 369 UNITS (80-120) 12/25/19 04:19 Random Glucose 385 mg/dL (74-106) H 12/25/19 04:30 Lactic Acid 2.4 mmol/L (0.4-2.0) H* 12/25/19 04:30 Calcium 8.6 mg/dL (8.5-10.1) 12/25/19 04:30 Phosphorus 3.4 mg/dL (2.5-4.9) 12/25/19 04:30 Magnesium 1.9 mg/dL (1.8-2.4) 12/25/19 04:30 Total Bilirubin 0.7 mg/dL (0.2-1) 12/25/19 04:30 AST 33 U/L (15-37) 12/25/19 04:30 ALT 54 U/L (13-61) 12/25/19 04:30 Alkaline Phosphatase 90 U/L (45-117) 12/25/19 04:30 Creatine Kinase 94 U/L (26-308) 12/25/19 04:30 Creatine Kinase Cancelled 12/25/19 04:30 Troponin I < 0.02 ng/ml (0.00-0.05) 12/25/19 04:30 Troponin I Cancelled 12/25/19 04:30 Total Protein 7.4 g/dl (6.4-8.2) 12/25/19 04:30 Albumin 3.7 g/dl (3.4-5.0) 12/25/19 04:30 Lipase 106 U/L (73-393) 12/25/19 04:30 Beta-Hydroxybutyrate 1.5 mg/dL (0.2-2.8) 12/25/19 04:30 12/25/19 06:38 Pt reassessed. No signs or symptoms of DKA/HHS. Pt reports significant improvement. Plan to d/c home with PCP f/u. All questions answered. Return precautions given. Pt verbalized understanding and agreement with plan. Discharge - Discharge Information Problems reviewed: Yes Clinical Impression/Diagnosis: Near syncope Condition: Stable Disposition: HOME - Admission No - Follow up/Referral Referrals: [facility] [place] [facility] [place] [Provider Group] - Patient Discharge Instructions Patient Printed Discharge Instructions: DI for Hyperglycemia -- Adult Additional Instructions: Please continue taking your medications as prescribed. Please make a follow up appointment with your primary care doctor (referral provided here) to discuss diabetes management. If you experience any new, worsening, or concerning symptoms, including nausea, vomiting, lethargy, change in mental status, change in vision, loss of consciousness, or any other concerns, please return to the emergency department. - Post Discharge Activity Work/Back to School Note: Back to Work
[2019-12-25 04:48] LABS: BASO % 0.5 % (0-2.0); EOS % 0.8 % (0-4.5); HEMATOCRIT 37.7 % (35.4-49); HEMOGLOBIN 12.9 GM/dL (11.7-16.9); LYMPH % 14.1 % (8-40); MCHC 34.1 g/dl (32.0-35.9); MEAN PLT VOLUME 8.8 fl (7.5-11.1); MONO % 7.5 % (3.8-10.2); NEUT % 77.1 % (42.8-82.8); PLATELET COUNT 197 K/MM3 (134-434); RDW 13.1 % (11.9-15.9); WHITE BLOOD COUNT 12.1 K/mm3 (4.0-10.0)
[2019-12-25 04:58] LABS: VENOUS BASE EXCESS -0.6 mmol/L (-2-2); VENOUS O2 SATURATION 96.1 % (70-80); VENOUS PCO2 40.5 mmHg (38-52); VENOUS PH 7.395 (7.310-7.410)
[2019-12-25 05:13] LABS: ALBUMIN 3.7 g/dl (3.4-5.0); ALK PHOS 90 U/L (45-117); ANION GAP 9 MMOL/L (8-16); BILIRUBIN,TOTAL 0.7 mg/dL (0.2-1); BLOOD UREA NITROGEN 14.9 mg/dL (7-18); CALCIUM 8.6 mg/dL (8.5-10.1); CHLORIDE 101 mmol/L (98-107); CO2 24 mmol/L (21-32); GLUCOSE,RANDOM 385 mg/dL (74-106); LIPASE 106 U/L (73-393); MAGNESIUM 1.9 mg/dL (1.8-2.4); PHOSPHOROUS 3.4 mg/dL (2.5-4.9); POTASSIUM 4.1 mmol/L (3.5-5.1); SGOT/AST 33 U/L (15-37); SGPT/ALT 54 U/L (13-61); SODIUM 134 mmol/L (136-145); TOT PROT 7.4 g/dl (6.4-8.2)
[2019-12-25 06:12] VITALS: BP 123/77; PULSE 67
[2019-12-25 06:33] LABS: URINE APPEARANCE CLEAR; URINE BILIRUBIN NEGATIVE (NEGATIVE); URINE COLOR YELLOW; URINE GLUCOSE (UA) 3+ (NEGATIVE); URINE KETONE NEGATIVE (NEGATIVE); URINE LEUK ESTERASE NEGATIVE (NEGATIVE); URINE NITRITE NEGATIVE (NEGATIVE); URINE PROTEIN NEGATIVE (NEGATIVE)
--- NOTE | 2019-12-25 10:43 | EKG ---
Test Reason : Blood Pressure : / mmHG Vent. Rate : 099 BPM Atrial Rate : 099 BPM P-R Int : 158 ms QRS Dur : 104 ms QT Int : 358 ms P-R-T Axes : 040 032 019 degrees QTc Int : 459 ms NORMAL SINUS RHYTHM NORMAL ECG WHEN COMPARED WITH ECG OF 03-MAY-2018 04:29, NON-SPECIFIC CHANGE IN ST SEGMENT IN INFERIOR LEADS Confirmed by Edmundo Velazquez ([id number]) on 12/25/2019 10:43:13 AM Referred By: Confirmed By:Edmundo Velazquez
== END 2019-12-25 06:49 | disposition home or self-care (01) ==
LOC: JER 04:11
DX: R55 Syncope and collapse (principal)
CPT/HCPCS: 36415; 80053; 81003; 82010; 82550; 82803; 82962; 83605; 83690; 83735; 84100; 84484; 85025; 87086; 93005; 93010; 99285-25

== ENCOUNTER 2021-01-28 02:36 | Emergency (ER) | payer OTHER ==
[2021-01-28 02:45] VITALS: BP 145/77; PULSE 87; TEMP 97.8; BMI 29.4
[2021-01-28] MEDS ORDERED: ONDANSETRON *ODT* 4 MG TABLET ONE (02:45)
[2021-01-28] MEDS ORDERED: ONDANSETRON *ODT* 4 MG TABLET SL ONE (02:45)
[2021-01-28 03:16] LABS: BASO % 0.8 % (0-2.0); EOS % 1.8 % (0-4.5); HEMATOCRIT 34.2 % (35.4-49); HEMOGLOBIN 12.1 GM/dL (11.7-16.9); LYMPH % 29.3 % (8-40); MCH 29.1 pg (25.7-33.7); MCHC 35.5 g/dl (32.0-35.9); MEAN CELL VOLUME 81.9 fl (80-96); MEAN PLT VOLUME 7.8 fl (7.5-11.1); MONO % 7.9 % (3.8-10.2); NEUT % 60.2 % (42.8-82.8); PLATELET COUNT 205 10^3/uL (134-434); RBC 4.18 M/mm3 (4.00-5.60); RDW 13.7 % (11.9-15.9); WHITE BLOOD COUNT 8.7 K/mm3 (4.0-10.0)
[2021-01-28 03:26] LABS: INR 1.01 (0.83-1.09); PROTHROMBIN TIME (PATIENT) 12.2 SEC (9.7-13.0)
[2021-01-28 03:28] LABS: ACTIVATED PTT 34.6 SECONDS (25.2-36.5)
[2021-01-28] MEDS ORDERED: ACETAMINOPHEN 1000 MG/100 ML VIAL (NON FORMULARY) IVPB ONE (03:28)
[2021-01-28] MEDS ORDERED: LACTATED RINGERS SOLUTION 1000 ML INFUS.BAG IV ONE ×2 (03:28→05:13)
[2021-01-28 03:30] LABS: CHLORIDE 102 mmol/L (98-107); SODIUM 138 mmol/L (136-145)
[2021-01-28 03:32] LABS: CALCIUM 9.2 mg/dL (8.5-10.1)
[2021-01-28 03:33] LABS: ALBUMIN 3.7 g/dl (3.4-5.0); ANION GAP 7 MMOL/L (8-16); BLOOD UREA NITROGEN 11.5 mg/dL (7-18); CO2 29 mmol/L (21-32); GLUCOSE,RANDOM 144 mg/dL (74-106)
[2021-01-28 03:36] LABS: CREATININE 0.9 mg/dL (0.55-1.3); SGOT/AST 40 U/L (15-37); SGPT/ALT 59 U/L (13-61)
[2021-01-28 03:37] LABS: BILIRUBIN,TOTAL 0.6 mg/dL (0.2-1)
[2021-01-28 03:38] LABS: TOT PROT 7.5 g/dl (6.4-8.2)
[2021-01-28 03:39] LABS: ALK PHOS 74 U/L (45-117)
[2021-01-28] MEDS ORDERED: ACETAMINOPHEN INJECTION 100 ML IVPB ONE (03:39)
[2021-01-28] MEDS ORDERED: SODIUM CHLORIDE 0.9% 500 ML INFUS.BAG IV ONE (04:01)
[2021-01-28 04:19] LABS: VENOUS BASE EXCESS -0.7 mmol/L (-2-2); VENOUS O2 SATURATION 90.8 % (70-80); VENOUS PCO2 42.2 mmHg (38-52); VENOUS PH 7.38 (7.310-7.410)
== END 2021-01-28 06:36 | disposition home or self-care (01) ==
LOC: JER 02:36
PROC: 3E0333Z Introduction of Anti-inflammatory into Peripheral Vein, Percutaneous Approach (ICD-10-PCS; principal; 2021-01-28)
DX: R53.81 Other malaise (principal); R51.9 Headache, unspecified
CPT/HCPCS: 36415; 70450-TC; 72125-TC; 80053; 82010; 82550; 82803; 82962; 84484; 85025; 85610; 85730; 93005; 93010; 99285-25; C9803; J0131; Q0162; U0003; U0005

== ENCOUNTER 2021-05-21 13:50 | Inpatient (IN) | payer OTHER ==
[2021-05-21] MEDS ORDERED: ACETAMINOPHEN 1000 MG/100 ML BAG IVPB ONE (14:38)
[2021-05-21] MEDS ORDERED: ONDANSETRON 4 MG/2 ML VIAL IVPUSH ONE (14:38)
[2021-05-21] MEDS ORDERED: LACTATED RINGERS SOLUTION 1000 ML INFUS.BAG IV ONE ×2 (14:38→17:28)
[2021-05-21] MEDS ORDERED: ACETAMINOPHEN INJECTION 100 ML IVPB ONE (14:41)
[2021-05-21] MEDS ORDERED: ONDANSETRON 4 MG/2 ML VIAL ONE (14:42)
[2021-05-21 16:16] LABS: BASO % 0.4 % (0-2.0); EOS % 0.1 % (0-4.5); LYMPH % 21.7 % (8-40); MCH 28.1 pg (25.7-33.7); MCHC 34.2 g/dl (32.0-35.9); MEAN CELL VOLUME 82.1 fl (80-96); MEAN PLT VOLUME 8.4 fl (7.5-11.1); MONO % 16.2 % (3.8-10.2); NEUT % 61.6 % (42.8-82.8); PLATELET COUNT 189 10^3/uL (134-434); RBC 4.26 M/mm3 (4.00-5.60); RDW 13.3 % (11.9-15.9); WHITE BLOOD COUNT 6.6 K/mm3 (4.0-10.0)
[2021-05-21 16:28] LABS: CHLORIDE 100 mmol/L (98-107); SODIUM 135 mmol/L (136-145)
[2021-05-21 16:30] LABS: ANION GAP 4 MMOL/L (8-16); BLOOD UREA NITROGEN 12.8 mg/dL (7-18); CALCIUM 8.9 mg/dL (8.5-10.1); CO2 31 mmol/L (21-32); GLUCOSE,RANDOM 196 mg/dL (74-106)
[2021-05-21 16:33] LABS: SGOT/AST 145 U/L (15-37); SGPT/ALT 138 U/L (13-61)
[2021-05-21 16:35] LABS: TOT PROT 7.7 g/dl (6.4-8.2)
[2021-05-21 16:36] LABS: ALK PHOS 60 U/L (45-117)
[2021-05-21] MEDS ORDERED: DEXAMETHASONE SOD PHOSPHATE 4 MG/1 ML VIAL IVPUSH ONE (18:04)
[2021-05-21] MEDS ORDERED: DEXAMETHASONE SOD PHOSPHATE 10 MG/1 ML VIAL ONE (18:14)
[2021-05-21] MEDS ORDERED: ACETAMINOPHEN 325 MG TABLET (FP) PO PRN (21:15)
[2021-05-21] MEDS ORDERED: ONDANSETRON 4 MG/2 ML VIAL IVPUSH PRN (21:23)
[2021-05-21] MEDS: FAMOTIDINE 20 MG/50 ML IVPB 20 MG/50 ML MG IVPB SCH (21:59)
[2021-05-21] MEDS ORDERED: INSULIN REGULAR HUMAN 100 UNITS/ML *VIAL IVPUSH ONE (23:04)
[2021-05-22 00:13] VITALS: BMI 29.5
[2021-05-22 01:45] LABS: PH,URINE 6.5 (5.0-8.0); URINE APPEARANCE CLEAR; URINE BILIRUBIN NEGATIVE (NEGATIVE); URINE COLOR YELLOW; URINE GLUCOSE (UA) 3+ (NEGATIVE); URINE KETONE NEGATIVE (NEGATIVE); URINE LEUK ESTERASE NEGATIVE (NEGATIVE); URINE NITRITE NEGATIVE (NEGATIVE); URINE PROTEIN NEGATIVE (NEGATIVE)
[2021-05-22] MEDS ORDERED: INSULIN (LEVEMIR) 100 UNITS/ML UNITS SQ ONE (01:48)
[2021-05-22] MEDS: INSULIN SLIDING SCALE (NOVOLOG) 1 VIAL SQ SCH ×3 (06:01→17:13)
[2021-05-22] MEDS ORDERED: CLOPIDOGREL BISULFATE 75 MG TABLET (FP) PO SCH (10:00)
[2021-05-22] MEDS ORDERED: DEXAMETHASONE SOD PHOSPHATE 10 MG/1 ML VIAL IVPUSH SCH (10:00)
[2021-05-22] MEDS ORDERED: ASPIRIN COATED 81 MG TABLET.EC PO SCH (10:00)
[2021-05-22] MEDS ORDERED: ENOXAPARIN NA (PORCINE) 40 MG/0.4 ML DISP.SYRIN SQ SCH (10:00)
[2021-05-22 10:11] LABS: BASO % 0.4 % (0-2.0); HEMATOCRIT 34.8 % (35.4-49); HEMOGLOBIN 11.6 GM/dL (11.7-16.9); LYMPH % 30.3 % (8-40); MCH 27.5 pg (25.7-33.7); MCHC 33.5 g/dl (32.0-35.9); MEAN PLT VOLUME 8.6 fl (7.5-11.1); MONO % 11.7 % (3.8-10.2); NEUT % 57.6 % (42.8-82.8); PLATELET COUNT 201 10^3/uL (134-434); RBC 4.24 M/mm3 (4.00-5.60); RDW 12.9 % (11.9-15.9); WHITE BLOOD COUNT 4.8 K/mm3 (4.0-10.0)
[2021-05-22 10:12] LABS: INR 1.18 (0.83-1.09); PROTHROMBIN TIME (PATIENT) 13.2 SEC (9.7-13.0)
[2021-05-22 10:14] LABS: ACTIVATED PTT 31.9 SECONDS (25.2-36.5)
[2021-05-22 10:21] LABS: CALCIUM 8.7 mg/dL (8.5-10.1)
[2021-05-22 10:23] LABS: ALBUMIN 3.8 g/dl (3.4-5.0); BLOOD UREA NITROGEN 13.2 mg/dL (7-18); MAGNESIUM 2.3 mg/dL (1.8-2.4)
[2021-05-22 10:25] LABS: BILIRUBIN,DIRECT 0.2 mg/dL (0.0-0.2)
[2021-05-22 10:26] LABS: BILIRUBIN,TOTAL 0.8 mg/dL (0.2-1); BILIRUBIN,TOTAL 1.4 mg/dL (0.2-1); CREATININE 0.9 mg/dL (0.55-1.3); PHOSPHOROUS 3.6 mg/dL (2.5-4.9); TOT PROT 7.5 g/dl (6.4-8.2)
[2021-05-22 10:32] LABS: ALBUMIN 3.8 g/dl (3.4-5.0)
[2021-05-22] MEDS: FAMOTIDINE 20 MG/50 ML IVPB 20 MG/50 ML MG IVPB SCH (10:34)
[2021-05-22] MEDS ORDERED: INSULIN (NOVOLOG) ASPART 100 UNITS/ML 10ML VIAL ONE (10:41)
[2021-05-22 13:17] VITALS: BP 112/56; PULSE 106; TEMP 98.8
== END 2021-05-22 18:42 | disposition home or self-care (01) | DRG 177 ==
LOC: JER 13:50 → JERBED 17:52 → J8W 20:35
PROVIDERS: ADMIT Internal Medicine; ATTEND Internal Medicine
PROC: 3E0333Z Introduction of Anti-inflammatory into Peripheral Vein, Percutaneous Approach (ICD-10-PCS; principal; 2021-05-21)
DX: U07.1 COVID-19 (principal); J96.01 Acute respiratory failure with hypoxia; E11.9 Type 2 diabetes mellitus without complications; R50.9 Fever, unspecified; E78.5 Hyperlipidemia, unspecified; D35.2 Benign neoplasm of pituitary gland; I10 Essential (primary) hypertension; R68.89 Other general symptoms and signs
CPT/HCPCS: 36415; 71045-TC-FY; 71275-TC; 80053; 80076; 81003; 82550; 82553; 82728; 82962; 83036; 83615; 83735; 84100; 84484; 85025; 85610; 85730; 86140; 87040; 87804; 93005; 93010; 99285-25; C9803; J0131; J1100; U0003; U0005

== ENCOUNTER 2022-01-26 11:35 | Emergency (ER) | payer OTHER ==
[2022-01-26 11:50] VITALS: RESP 18; TEMP 97.9; BMI 29.5
[2022-01-26] MEDS ORDERED: SODIUM CHLORIDE 0.9% 500 ML INFUS.BAG IV ONE (12:06)
[2022-01-26 12:17] LABS: BASO % 0.7 % (0-2.0); EOS % 1.2 % (0-4.5); HEMATOCRIT 39.8 % (35.4-49); HEMOGLOBIN 13.6 GM/dL (11.7-16.9); LYMPH % 20.2 % (8-40); MCH 27.9 pg (25.7-33.7); MCHC 34.2 g/dl (32.0-35.9); MEAN CELL VOLUME 81.8 fl (80-96); MEAN PLT VOLUME 8.4 fl (7.5-11.1); MONO % 6.6 % (3.8-10.2); NEUT % 71.3 % (42.8-82.8); PLATELET COUNT 242 10^3/uL (134-434); RBC 4.87 M/mm3 (4.00-5.60); RDW 13.9 % (11.9-15.9); WHITE BLOOD COUNT 8.9 K/mm3 (4.0-10.0)
[2022-01-26 12:24] LABS: INR 1.09 (0.83-1.09); PROTHROMBIN TIME (PATIENT) 12.5 SEC (9.7-13.0)
[2022-01-26 12:26] LABS: ACTIVATED PTT 35.9 SECONDS (25.2-36.5)
[2022-01-26 12:45] LABS: CALCIUM 9.4 mg/dL (8.5-10.1)
[2022-01-26 12:46] LABS: BLOOD UREA NITROGEN 11.3 mg/dL (7-18)
[2022-01-26 12:50] LABS: BILIRUBIN,TOTAL 0.6 mg/dL (0.2-1); TOT PROT 8.4 g/dl (6.4-8.2)
[2022-01-26] MEDS ORDERED: ACETAMINOPHEN 500 MG TABLET (FP) PO ONE (13:15)
[2022-01-26] MEDS ORDERED: ACETAMINOPHEN 325 MG TABLET (FP) ONE (13:29)
[2022-01-26 14:03] LABS: PH,URINE 5.5 (5.0-8.0); URINE APPEARANCE CLEAR; URINE BILIRUBIN NEGATIVE (NEGATIVE); URINE COLOR YELLOW; URINE GLUCOSE (UA) 1+ (NEGATIVE); URINE KETONE TRACE (NEGATIVE); URINE LEUK ESTERASE NEGATIVE (NEGATIVE); URINE NITRITE NEGATIVE (NEGATIVE); URINE PROTEIN NEGATIVE (NEGATIVE); URINE UROBILINOGEN 0.2 mg/dL (0.2-1.0)
[2022-01-26 15:11] VITALS: BP 128/79; PULSE 78
== END 2022-01-26 15:45 | disposition home or self-care (01) ==
LOC: JER 11:35
DX: U07.1 COVID-19 (principal)
CPT/HCPCS: 36415; 71045-TC-FY; 80053; 81003; 82010; 82962; 84484; 85025; 85610; 85730; 86850; 86900; 86901; 87086; 99285-25

== ENCOUNTER 2022-10-14 04:06 | Emergency (ER) | payer OTHER ==
[2022-10-14] MEDS ORDERED: ASPIRIN 81 MG CHEWABLE TABLETS PO ONE (04:36)
[2022-10-14 04:37] VITALS: BMI 30.2
[2022-10-14] MEDS ORDERED: ASPIRIN COATED 81 MG TABLET.EC ONE (04:41)
[2022-10-14] MEDS ORDERED: ASPIRIN 81 MG CHEWABLE TABLETS ONE (04:42)
[2022-10-14 05:23] LABS: POTASSIUM 4.6 mmol/L (3.5-5.1)
[2022-10-14 05:29] LABS: CREATININE 0.9 mg/dL (0.55-1.3)
[2022-10-14 05:32] LABS: BASO % 0.7 % (0-2.0); HEMOGLOBIN 12.2 GM/dL (11.7-16.9); MCH 28.6 pg (25.7-33.7); MCHC 35.8 g/dl (32.0-35.9); MEAN CELL VOLUME 79.8 fl (80-96); MEAN PLT VOLUME 8.9 fl (7.5-11.1); MONO % 7.9 % (3.8-10.2); NEUT % 64.4 % (42.8-82.8); PLATELET COUNT 184 10^3/uL (134-434); RBC 4.26 M/mm3 (4.00-5.60); RDW 13.3 % (11.9-15.9); WHITE BLOOD COUNT 8.5 K/mm3 (4.0-10.0)
[2022-10-14 05:34] LABS: INR 1.1 (0.83-1.09); PROTHROMBIN TIME (PATIENT) 12.7 SEC (9.7-13.0)
[2022-10-14 05:37] LABS: ACTIVATED PTT 36.8 SECONDS (25.2-36.5)
[2022-10-14 06:18] LABS: CALCIUM 8.9 mg/dL (8.5-10.1)
[2022-10-14 06:19] LABS: ALBUMIN 3.8 g/dl (3.4-5.0); BLOOD UREA NITROGEN 12.8 mg/dL (7-18)
[2022-10-14 06:24] LABS: BILIRUBIN,TOTAL 0.7 mg/dL (0.2-1); TOT PROT 7.8 g/dl (6.4-8.2)
[2022-10-14 06:32] VITALS: TEMP 98.1
[2022-10-14 07:56] VITALS: BP 112/72; PULSE 86; RESP 20
== END 2022-10-14 07:56 | disposition home or self-care (01) ==
LOC: JER 04:06
DX: R07.9 Chest pain, unspecified (principal); Z20.822 Contact with and (suspected) exposure to COVID-19
CPT/HCPCS: 0241U-QW; 36415; 80053; 84484; 85025; 85610; 85730; 93005; 93010; 99284-25

== ENCOUNTER 2022-12-28 07:22 | Emergency (ER) | payer OTHER ==
[2022-12-28 07:32] VITALS: BP 127/76; PULSE 88; RESP 14; TEMP 98.1; BMI 31.0
== END 2022-12-28 08:13 | disposition home or self-care (01) ==
LOC: JER 07:22
DX: R53.83 Other fatigue (principal); R05.9 Cough, unspecified; Z11.59 Encounter for screening for other viral diseases; Z20.822 Contact with and (suspected) exposure to COVID-19
CPT/HCPCS: 0241U-QW; 36415; 86308; 99283-25

== ENCOUNTER 2024-05-20 23:38 | Observation (INO) | payer OTHER ==
[2024-05-20 23:44] VITALS: BMI 31.0
[2024-05-21 01:10] LABS: BASO % 0.6 % (0-2.0); HEMATOCRIT 37.6 % (35.4-49); HEMOGLOBIN 12.8 GM/dL (11.7-16.9); LYMPH % 15.6 % (8-40); MCH 27.6 pg (25.7-33.7); MEAN CELL VOLUME 81.4 fl (80-96); MEAN PLT VOLUME 8.4 fl (7.5-11.1); MONO % 12.1 % (3.8-10.2); NEUT % 68.7 % (42.8-82.8); PLATELET COUNT 171 10^3/uL (134-434); RBC 4.62 M/mm3 (4.00-5.60); RDW 13.8 % (11.9-15.9); WHITE BLOOD COUNT 7.5 K/mm3 (4.0-10.0)
[2024-05-21 01:29] LABS: POTASSIUM 4.6 mmol/L (3.5-5.1)
[2024-05-21 01:31] LABS: CALCIUM 9.1 mg/dL (8.5-10.1)
[2024-05-21 01:32] LABS: ALBUMIN 3.5 g/dl (3.4-5.0); BLOOD UREA NITROGEN 12.5 mg/dL (7-18); MAGNESIUM 1.8 mg/dL (1.8-2.4)
[2024-05-21 01:36] LABS: BILIRUBIN,TOTAL 0.9 mg/dL (0.2-1); TOT PROT 7.4 g/dl (6.4-8.2)
[2024-05-21] MEDS ORDERED: ACETAMINOPHEN INJECTION 100 ML ONE (01:36)
[2024-05-21] MEDS: ACETAMINOPHEN 1000 MG/100 ML BAG IVPB ONE (01:47)
[2024-05-21 08:48] LABS: BASO % 0.6 % (0-2.0); EOS % 3.1 % (0-4.5); HEMATOCRIT 37.7 % (35.4-49); HEMOGLOBIN 12.4 GM/dL (11.7-16.9); LYMPH % 15.1 % (8-40); MCH 27.1 pg (25.7-33.7); MCHC 32.8 g/dl (32.0-35.9); MEAN CELL VOLUME 82.5 fl (80-96); MEAN PLT VOLUME 8.3 fl (7.5-11.1); MONO % 13.2 % (3.8-10.2); PLATELET COUNT 179 10^3/uL (134-434); RBC 4.57 M/mm3 (4.00-5.60); RDW 14.1 % (11.9-15.9)
[2024-05-21 09:20] LABS: POTASSIUM 4.3 mmol/L (3.5-5.1)
[2024-05-21 09:31] LABS: CALCIUM 9.1 mg/dL (8.5-10.1)
[2024-05-21 09:32] LABS: ALBUMIN 3.7 g/dl (3.4-5.0); MAGNESIUM 1.9 mg/dL (1.8-2.4)
[2024-05-21 09:35] LABS: BILIRUBIN,TOTAL 1.2 mg/dL (0.2-1); BLOOD UREA NITROGEN 10.4 mg/dL (7-18); PHOSPHOROUS 3.6 mg/dL (2.5-4.9); TOT PROT 7.4 g/dl (6.4-8.2)
[2024-05-21] MEDS ORDERED: OSELTAMIVIR PHOSPHATE 75 MG CAPSULE ONE ×2 (09:39→22:08)
[2024-05-21] MEDS ORDERED: ACETAMINOPHEN 325 MG TABLET (FP) ONE (09:39)
[2024-05-21] MEDS ORDERED: ENOXAPARIN NA (PORCINE) 40 MG/0.4 ML DISP.SYRIN SQ ONE (09:40)
[2024-05-21] MEDS ORDERED: ASPIRIN COATED 81 MG TABLET.EC ONE (09:40)
[2024-05-21] MEDS: OSELTAMIVIR PHOSPHATE 75 MG CAPSULE PO SCH (09:45)
[2024-05-21] MEDS: ASPIRIN COATED 81 MG TABLET.EC PO SCH (09:45)
[2024-05-21] MEDS: ACETAMINOPHEN 325 MG TABLET (FP) PO PRN (09:45)
[2024-05-21] MEDS: ENOXAPARIN NA (PORCINE) 40 MG/0.4 ML DISP.SYRIN SQ SCH (09:45)
[2024-05-21] MEDS ORDERED: INSULIN ASPART SLIDING SCALE (NOVOLOG) 1 VIAL SQ ONE (12:13)
[2024-05-21] MEDS: INSULIN ASPART SLIDING SCALE (NOVOLOG) 1 VIAL SQ SCH (12:25)
[2024-05-21] MEDS: INSULIN (NOVOLOG) ASPART 100 UNITS/ML 10ML VIAL SQ SCH (12:25)
[2024-05-21] MEDS ORDERED: ALBUTEROL SO4 HFA INHALER IH ONE (16:16)
[2024-05-21] MEDS ORDERED: guaiFENesin/CODEINE 10 ML UNIT-DOSE CUPS ONE (16:16)
[2024-05-21] MEDS: guaiFENesin/D-METHORPHAN HB 10 ML UNIT-DOSE CUPS PO PRN (16:26)
[2024-05-21] MEDS: ALBUTEROL SO4 HFA INHALER IH PRN (16:26)
[2024-05-22] MEDS ORDERED: ACETAMINOPHEN 325 MG TABLET (FP) ONE (01:12)
[2024-05-22] MEDS: BENZOCAINE/MENTH/CETYLPYRD CL 1 EACH LOZENGE MM PRN (11:13)
[2024-05-22] MEDS: ACETAMINOPHEN 1000 MG/100 ML BAG IVPB PRN (12:00)
[2024-05-22] MEDS ORDERED: BENZONATATE 200 MG CAPSULE PO PRN (16:59)
[2024-05-22] MEDS: AZITHROMYCIN IVPB 500 MG/250 ML BAG IVPB SCH (18:57)
[2024-05-22] MEDS: INSULIN (NOVOLOG) ASPART 100 UNITS/ML 10ML VIAL SQ ONE (21:31)
[2024-05-22] MEDS: INSULIN (LEVEMIR) 100 UNITS/ML UNITS SQ SCH (22:21)
[2024-05-23] MEDS: AZITHROMYCIN IVPB 500 MG/250 ML BAG IVPB SCH (09:46)
[2024-05-23 14:35] VITALS: BP 125/63; PULSE 81; RESP 18; TEMP 97.9
== END 2024-05-23 16:00 | disposition home or self-care (01) ==
LOC: JER 23:38 → JERBED 05-21 03:33 → J6S 05-22 07:14
PROVIDERS: ADMIT Internal Medicine; ATTEND Student in an Organized Health Care Education/Training Program
PROC: 3E033NZ Introduction of Analgesics, Hypnotics, Sedatives into Peripheral Vein, Percutaneous Approach (ICD-10-PCS; principal; 2024-05-21)
PROC: 3E03329 Introduction of Other Anti-infective into Peripheral Vein, Percutaneous Approach (ICD-10-PCS; 2024-05-21)
PROC: 3E023GC Introduction of Other Therapeutic Substance into Muscle, Percutaneous Approach (ICD-10-PCS; 2024-05-21)
DX: J09.X2 Influenza due to identified novel influenza A virus with other respiratory manifestations (principal); I11.9 Hypertensive heart disease without heart failure; E78.5 Hyperlipidemia, unspecified; E11.9 Type 2 diabetes mellitus without complications; R09.02 Hypoxemia; D35.2 Benign neoplasm of pituitary gland; Z99.81 Dependence on supplemental oxygen
CPT/HCPCS: 0241U-QW; 36415; 71046-TC-FY; 80053; 82962; 83735; 84100; 84484; 85025; 93005; 93010; 94761; 96365; 96366; 96372; 96375; 96376; 99285-25; G0378; J0131